=== PATIENT | female | born 2000 | race Caucasian/White ===

== ENCOUNTER → 2018-06-08 14:41 | Day surgery (SDC) | payer BC ==
[~2018-06-08 14:41] MED LIST: Bupivacaine 0.25% EPI 200,000* 30 ML SDV ONE; Dexamethasone IV* 4 MG/ML 1 ML (4 MG) ONE; KETAMINE HCL* 50 MG/ML 10 ML VIAL ONE; Ketorolac INJ* 30 MG/ML 1 ML VIAL ONE; Lidocaine 2% PF * 5 ML VIAL ONE; Midazolam* 1 MG/ML 10 ML VIAL (10 MG) ONE; Morphine VIAL* 10 MG/ML 1 ML VIAL ONE; Naloxone* 0.4 MG/ML 1 ML VIAL IV PRN; Ondansetron INJ* 2 MG/ML VIAL IV PRN; Ondansetron INJ* 2 MG/ML VIAL ONE; Propofol* 10 MG/ML 20 ML BTL IV PUSH ONE; Tobramycin 0.3% OPHTH.OINT* 3.5 GM TUBE (OPTH OINTMENT) RIGHT EYE ONE; ceFAZolin 2 GM in NS PREMIX(*) 2 GM/100 ML BAG IVPB ONE; fentaNYL* 50 MCG/ML 2 ML VIAL (100 MCG VIAL) ONE; oxyCODONE/Acetamin 5/325 MG* TAB ONE; oxyCODONE/Acetamin 5/325 MG* TAB PO PRN
--- NOTE | 2018-06-08 16:12 | PN ---
Progress Note - Progress Note Date of Service: 06/08/18 SOAP: Subjective: Pt seen and case d/w Dr Osorio. Perianall and pilonidal area examined. Objective: warmth and tenderness at left perianal region. mild swelling. nodrainage. I do not appreciate any active pilonidal dz Assessment: perianal abscess. Plan: Incision and drainage of perianal abscess r/b/a discussed and pt wishes to proceed. Plan for discharge with packing and presciptions for augmentin and percocet
--- NOTE | 2018-06-08 17:18 | BRIEFOPN ---
Brief Operative Note - Surgery Procedures: Procedures Pre-OP Diagnoses: Perianal abscess Post-op Diagnosis: same Procedure: Incision and drainage of perianalabscess Surgeon: Shannon Asst: none Anethesia: loacl MAC EBL: minimal IVF: crystalloid Specimen: abscess fluid for culture Drains: wound packed and left open
[2018-06-08] MEDS: fentaNYL* 50 MCG/ML 2 ML VIAL (100 MCG VIAL) IV PRN ×2 (17:23→17:41)
[2018-06-08 19:14] VITALS: BP 114/68
--- NOTE | 2018-06-09 17:02 | OP ---
CC: JULIO [facility], [facility] * DATE OF OPERATION: 06/08/18 - [facility] DATE OF : [birth year] SURGEON: Chema Ortega MD TURPENTINE DISTILLER: None. ANESTHESIOLOGIST: Dr. Brand. ANESTHESIA: Local MAC. PRE-OP DIAGNOSIS: Perianal abscess. POST-OP DIAGNOSIS: Perianal abscess. OPERATIVE PROCEDURE: Incision and drainage of perianal abscess. INDICATIONS: Ms. Soler is a 18-year-old female who is known to Dr. Osorio after undergoing a pilonidal cystectomy in the past. She has had drainage procedures and spontaneous drainage of the pilonidal/perianal area since then. The patient presents today to the office with complaints of pain at the same site for almost 4 days now. Usually, according to the patient, it would spontaneously drain; this has not. She is recommended for drainage as described by Dr. Osorio. The concern was that this could possibly be an additional pilonidal disease despite resection in the past. SPECIMEN: Fluid for both aerobic and anaerobic cultures. CONDITION: Packing placed. The patient tolerated the procedure well, was transferred to PACU in stable condition. DESCRIPTION OF PROCEDURE: After examining her in the preoperative area, I thought that this was likely a perianal abscess and got a consent from her for incision and drainage. We spoke of the possible complications, which included, but not limited to, bleeding, infection, fistula formation, need for additional procedures. The patient agreed and signed consent. She was taken to the operating room, placed on the operating table in the supine position. Gentle sedation was given. She was then placed in lithotomy. Perianal area was prepped with Betadine and she was draped and the time-out was performed. Injection of the left perianal place was made with lidocaine 1% with epinephrine. We injected where we planned to make our incision at the most boggy area of the site as well as around the cavity. Next, an 11-blade was used to incise close to the anus as I felt necessary to allow for drainage. Pus that was foul smelling promptly exited. Cultures were taken. I then placed my finger in and cleared up any loculations within this perianal abscess. It did not seem to go superiorly. It did go towards the area of the anal canal; this was not able to be probed. It should be noted that I did place anal retractors in prior to doing this procedure and found hyperemic-appearing dentate line posteriorly, but no discrete opening to suggest fistula. The wound was irrigated and packed with half-inch iodoform packing followed by gauze. The patient tolerated the procedure well, was transferred to the PACU in stable condition. [id number]/[facility] #: [id number] EWELINA
== END | disposition home or self-care (01) ==
LOC: OR 14:41
PROVIDERS: ATTEND Surgery
DX: L05.01 Pilonidal cyst with abscess (principal)
CPT/HCPCS: 81025; 87070; 87073; 87077; 87186; 87205; A9270-GY; J0690; J1100; J1885; J2250; J2270; J2405; J2704; J3010